=== PATIENT | female | born 1995 | race Two or more races ===

== ENCOUNTER 2019-03-15 15:24 | Emergency (ER) | payer OTHER ==
[~2019-03-15] VITALS: Ht 152.4 cm; Wt 73.9 kg
[2019-03-15 16:40] LABS: Basophils # (auto) 0 uL; Basophils % (auto) 0.3 % (0.0-2.0); Eosinophils # (auto) 0.1 uL; Lymphocytes # (auto) 2.3 uL; Mean Corpuscular Volume 69.7 fL (80.0-100.0); Monocytes # (auto) 0.5 uL; Nucleated Red Blood Cells % 0.1 %; White Blood Cell 6.2 10^3/uL (4.4-10.8)
[2019-03-15 16:43] LABS: Eosinophils % (auto) 1.4 % (0.0-7.0); Hematocrit 34.4 % (36.0-46.0); Lymphocytes % (auto) 37.2 % (10.0-50.0); Mean Corpuscular Hemoglobin 22.2 pg (28.0-32.0); Mean Corpuscular Hgb Conc. 31.8 g/dL (32.0-36.0); Monocytes % (auto) 7.4 % (0.0-12.0); Neutrophils # (auto) 3.4 uL; Neutrophils % (auto) 53.7 % (37.0-80.0); Platelet Count (auto) 171 10^3/uL (140-450); Red Blood Cells 4.94 10^6/uL (4.0-5.20); Red Cell Distribution Width 17.9 % (11.8-14.3)
[2019-03-15 16:48] LABS: Urine Bacteria NONE SEEN /hpf (None Seen); Urine Blood Negative /uL (Negative); Urine Mucus FEW (None Seen); Urine Specific Gravity 1.029 (1.001-1.035); Urine WBC 6 /hpf (0 - 5)
[2019-03-15 16:58] LABS: Albumin 3.2 g/dL (3.4-5.0); BUN/Creatinine Ratio 20.7; Calcium 8.6 mg/dL (8.5-10.1); Potassium 3.5 mmol/L (3.5-5.1)
[2019-03-15 17:02] LABS: Bilirubin, Total 0.2 mg/dL (0.2-1.0); Total Protein 7.5 g/dL (6.4-8.2)
[2019-03-15] MEDS ORDERED: IOHEXOL 300 MG/ML 100ML BOTTLE IJ ONE (17:08)
[2019-03-15 18:20] VITALS: BP 107/63
== END 2019-03-15 19:06 | disposition home or self-care (01) ==
LOC: ER 15:26
DX: K62.5 Hemorrhage of anus and rectum (principal); D50.9 Iron deficiency anemia, unspecified; N39.0 Urinary tract infection, site not specified; E46 Unspecified protein-calorie malnutrition
CPT/HCPCS: 36415; 74177; 80053; 81001; 81025; 85025; 99284; Q9967

== ENCOUNTER 2020-02-20 13:15 | Inpatient (IN) | payer OTHER ==
[~2020-02-20] VITALS: Ht 30.5 cm; Wt 0.5 kg
[2020-02-20] MEDS ORDERED: LACT. RINGERS/OXYTOCIN 20UNITS 1,000 ML IV SCH (13:43)
[2020-02-20] MEDS ORDERED: LACTATED RINGER'S 1,000 ML IV SCH ×2 (13:43)
[2020-02-20] MEDS ORDERED: DERMOPLAST 60ML BOTTLE TOP PRN (13:45)
[2020-02-20] MEDS ORDERED: WITCH HAZEL-GLYCERIN PAD TOP PRN (13:45)
[2020-02-20] MEDS ORDERED: LIDOCAINE 2%HCL (LOCAL ANESTH.) INJ 20ML MDV ID ONE (13:45)
[2020-02-20] MEDS ORDERED: PHISODERM TOP SOLN 240ML BTL TOP PRN (13:45)
[2020-02-20] MEDS ORDERED: LACT. RINGERS/OXYTOCIN 20UNITS 500 ML IV ONE (13:47)
[2020-02-20] MEDS ORDERED: LACT. RINGERS/OXYTOCIN 20UNITS 1,000 ML IV ONE (14:04)
[2020-02-20] MEDS ORDERED: LIDOCAINE 2%HCL (LOCAL ANESTH.) INJ 20ML MDV ONE (14:04)
[2020-02-20 14:18] LABS: Basophils % (auto) 0.5 % (0.0-2.0); Eosinophils # (auto) 0 10 ^3/uL (0-0.8); Hemoglobin 11.4 g/dL (12.2-16.2); Mean Corpuscular Volume 67.6 fL (80.0-100.0); Monocytes # (auto) 0.5 10 ^3/uL (0-1.3)
[2020-02-20 14:19] LABS: Basophils # (auto) 0.1 10 ^3/uL (0-0.2); Eosinophils % (auto) 0.3 % (0.0-7.0); Hematocrit 36.2 % (36.0-46.0); Lymphocytes # (auto) 1.4 10 ^3/uL (0.4-5.4); Lymphocytes % (auto) 14.7 % (10.0-50.0); Mean Corpuscular Hemoglobin 21.2 pg (28.0-32.0); Mean Corpuscular Hgb Conc. 31.4 g/dL (32.0-36.0); Monocytes % (auto) 5.4 % (0.0-12.0); Neutrophils # (auto) 7.4 10 ^3/uL (1.6-8.6); Neutrophils % (auto) 79.1 % (37.0-80.0); Nucleated Red Blood Cells % 0.1 %; Platelet Count (auto) 134 10^3/uL (140-450); Red Blood Cells 5.36 10^6/uL (4.0-5.20); White Blood Cell 9.3 10^3/uL (4.4-10.8)
[2020-02-20 14:32] LABS: Albumin 2.5 g/dL (3.4-5.0); Calcium 8.4 mg/dL (8.5-10.1); Potassium 3.7 mmol/L (3.5-5.1)
[2020-02-20 14:35] LABS: BUN/Creatinine Ratio 12.3; Bilirubin, Total 0.2 mg/dL (0.2-1.0); Red Cell Distribution Width 25.6 % (11.8-14.3)
[2020-02-20 14:40] LABS: INR 0.94 (0.9-1.15)
[2020-02-20] MEDS: IBUPROFEN 600 MG TAB PO PRN ×2 (17:18→23:17)
--- NOTE | 2020-02-20 17:44 | NUR ---
Ambulation: Patient OOB with standby assistance by RN. Patient ambulated to bathroom with steady gait. Patient able to void [employer]'S CLEAR YELLOW URINE without difficulty. [facility] teaching provided with returned demonstration by patient. Clean gown provided and bed linen changed. Patient ambulated back to bed with steady gait and no distress noted.
--- NOTE | 2020-02-20 17:49 | NUR ---
Teaching: Reviewed information in [facility] booklet with patient. Discussed benefits of and risks associated with not . Discussed different positions, proper latch, feeding cues, and baby-led . Provided information of medication side effects related to . All questions and concerns addressed at this time. Patient verbalized understanding of information.
[2020-02-20 18:30] VITALS: BP 128/61
[2020-02-20 23:08] VITALS: BP 129/65
[2020-02-21 03:15] VITALS: BP 120/73
[2020-02-21] MEDS: IBUPROFEN 600 MG TAB PO PRN ×2 (03:43→11:20)
[2020-02-21 07:00] VITALS: BP 106/59
[2020-02-21 10:30] VITALS: BP 110/65
[2020-02-21] MEDS ORDERED: PREN-96 PO (11:28)
--- NOTE | 2020-02-21 12:30 | NUR ---
vital signs reviewed. Addendum: 02/21/20 at 1440 by Rom Herrera RN Amended: Links added.
[2020-02-21 15:07] VITALS: BP 118/70
--- NOTE | 2020-02-21 15:10 | NUR ---
RECEIVED REPORT ASSUMED CARE.
--- NOTE | 2020-02-21 15:10 | NUR ---
Report given to Debra De León RN. transferred care
--- NOTE | 2020-02-21 15:30 | NUR ---
DISCHARGE INSTRUCTIONS COMPLETED. ALL QUESTIONS ANSWERED. COPIES GIVEN TO PT.
--- NOTE | 2020-02-21 16:15 | NUR ---
PATIENT AMBULATED OFF UNIT WITH ALL PERSONAL BELONGINGS, DENYING PAIN. IN CAR SEAT
[2020-02-23 04:05] LABS: RPR Non Reactive (Non Reactive)
== END 2020-02-21 16:15 | disposition home or self-care (01) | DRG 560 ==
LOC: OBSVTOIN 13:15 → LDRP 13:15
PROVIDERS: ADMIT Specialist; ATTEND Specialist
PROC: 10E0XZZ Delivery of Products of Conception, External Approach (ICD-10-PCS; principal; 2020-02-20)
PROC: 10907ZC Drainage of Amniotic Fluid, Therapeutic from Products of Conception, Via Natural or Artificial Opening (ICD-10-PCS; 2020-02-20)
DX: O77.0 Labor and delivery complicated by meconium in amniotic fluid (principal); Z37.0 Single live birth; Z3A.38 38 weeks gestation of pregnancy
CPT/HCPCS: 36415; 59409; 80053; 84112; 85025; 85610; 85730; 86592; 86850; 86900; 86901; 96361; 96365; 96366; G0378; J2590